=== PATIENT | male | born 1965 | race Caucasian/White ===

== ENCOUNTER 2016-05-29 14:25 | Emergency (ER) | payer MEDICARE, OTHER | END 2016-05-29 15:47 | disposition home or self-care (01) | LOC: FER 14:25 | DX: S61.212A Laceration without foreign body of right middle finger without damage to nail, initial encounter (principal); S61.214A Laceration without foreign body of right ring finger without damage to nail, initial encounter; I10 Essential (primary) hypertension; F17.210 Nicotine dependence, cigarettes, uncomplicated; Z88.5 Allergy status to narcotic agent; Z89.022 Acquired absence of left finger(s); W45.8XXA Other foreign body or object entering through skin, initial encounter; Y92.009 Unspecified place in unspecified non-institutional (private) residence as the place of occurrence of the external cause ==

== ENCOUNTER → 2020-05-31 | Day surgery (SDC) | payer MEDICARE ==
[~2020-05-31] MED LIST: AUGMENTIN 875-1 EACH PO; CLONIDINE HCL0.1 MG PO; COREG 6.25MG6.25 MG PO; K-DUR20 MEQ PO; LASIX20 MG PO; LISINOPRIL-HCT1 EAC2 PO; NORVASC5 MG PO; TRAZODONE 150M150 MG PO
[2020-05-31 10:35] LABS: HCT 54.2 % (42.0-52.0); HGB 17.9 g/dl (13.2-18.0); MCH 29.4 pg (25.0-31.0); MCV 89.1 fL (78.0-100.0); MPV 10.1 fL (6.0-9.5); RBC 6.08 M/uL (4.70-6.00); RDW 15.3 % (11.5-14.0)
[2020-05-31 10:56] LABS: ALBUMIN 3.3 g/dL (3.4-5.0); BILIRUBIN - TOTAL 0.7 mg/dL (0.2-1.0); BUN/CREAT RATIO (CALC) 15.1 RATIO; CREATININE 0.73 mg/dL (0.67-1.17); GLOBULIN (CALCULATION) 3.8 g/dL; POTASSIUM 3.5 mmol/L (3.5-5.1); TOTAL PROTEIN 7.1 g/dL (6.4-8.2)
== END | disposition home or self-care (01) ==
LOC: FAS 09:11
PROVIDERS: Surgery
DX: K12.2 Cellulitis and abscess of mouth (principal); K21.9 Gastro-esophageal reflux disease without esophagitis; I25.10 Atherosclerotic heart disease of native coronary artery without angina pectoris; I42.2 Other hypertrophic cardiomyopathy; I35.1 Nonrheumatic aortic (valve) insufficiency; I10 Essential (primary) hypertension; M19.90 Unspecified osteoarthritis, unspecified site; E78.5 Hyperlipidemia, unspecified; F17.210 Nicotine dependence, cigarettes, uncomplicated; Z20.822 Contact with and (suspected) exposure to COVID-19; Z98.890 Other specified postprocedural states
CPT/HCPCS: 36415; 80053; 93005; J2250; J2704; J7120

== ENCOUNTER 2021-06-11 09:59 | Inpatient (IN) | payer MEDICARE, OTHER ==
[~2021-06-11] VITALS: Ht 172.7 cm; Wt 90.8 kg
[2021-06-11 12:15] LABS: BASOPHIL 0.6 % (0-2); EOSINOPHIL 0.8 % (0-5); HCT 51.7 % (42.0-52.0); HGB 16.6 g/dl (13.2-18.0); LYMPHOCYTE 12.4 % (15-48); MCH 28.5 pg (25.0-31.0); MCHC 32.1 g/dL (32.0-36.0); MCV 88.8 fL (78.0-100.0); MONOCYTE 10.6 % (0-12); MPV 9.8 fL (6.0-9.5); NEUTROPHIL 75.2 % (41-80); NRBC 0; PLT 186 K/uL (150-400); RBC 5.82 M/uL (4.70-6.00); RDW 14.7 % (11.5-14.0); WBC 9.3 K/uL (4.0-10.5)
[2021-06-11 12:21] LABS: INR 1.24 (0.9-1.2); PROTHROMBIN TIME 14.9 SECONDS (11.8-13.4)
[2021-06-11 12:22] LABS: PTT 31.5 SECONDS (24.4-34.7)
[2021-06-11 12:23] LABS: D-DIMER 0.95 ug/mLFEU (0.00-0.41)
[2021-06-11 12:32] LABS: BILIRUBIN 1+ mg/dL (NEGATIVE); BLOOD 3+ Ery/uL (NEGATIVE); COLOR RED (YELLOW); GLUCOSE (U) NORMAL (NORMAL); LEUKOCYTES NEGATIVE Leu/uL (NEGATIVE); NITRITE NEGATIVE (NEGATIVE); PROTEIN 3+ mg/dL (NEGATIVE)
[2021-06-11 12:36] LABS: CLARITY HAZY (CLEAR)
[2021-06-11 12:38] LABS: URINARY RBC TNTC
[2021-06-11 12:39] LABS: CKMB 0.7 ng/mL (0.0-3.6)
[2021-06-11 12:39] LABS: SQUAMOUS EPITHELIAL CELLS RARE
[2021-06-11 14:16] LABS: ALBUMIN 1.4 g/dL (3.4-5.0); BILIRUBIN - TOTAL 0.5 mg/dL (0.2-1.0); BUN/CREAT RATIO (CALC) 13.8 RATIO; CREATININE 1.16 mg/dL (0.67-1.17); GLOBULIN (CALCULATION) 4.7 g/dL; POTASSIUM 3.7 mmol/L (3.5-5.1); TOTAL PROTEIN 6.1 g/dL (6.4-8.2)
[2021-06-11] MEDS ORDERED: OXYCONTIN 40MG40 MG PO (18:17)
[2021-06-11] MEDS ORDERED: ELIQUIS5 MG PO (18:17)
[2021-06-11] MEDS ORDERED: LUNESTA3 MG PO (18:18)
[2021-06-11] MEDS ORDERED: LASIX20 MG PO ×2 (20:51→22:40)
[2021-06-11 22:12] LABS: CREATININE 1.07 mg/dL (0.67-1.17); MAGNESIUM 1.9 mg/dL (1.8-2.4); PHOSPHORUS 4.1 mg/dL (2.6-4.7); POTASSIUM 3.6 mmol/L (3.5-5.1)
[2021-06-11] MEDS ORDERED: POTASSIUM20 MEQ/11 PO (22:39)
[2021-06-12 06:26] LABS: BASOPHIL 0.4 % (0-2); HCT 47.9 % (42.0-52.0); HGB 15.3 g/dl (13.2-18.0); LYMPHOCYTE 19.2 % (15-48); MCH 28.6 pg (25.0-31.0); MCHC 31.9 g/dL (32.0-36.0); MCV 89.5 fL (78.0-100.0); MONOCYTE 12.9 % (0-12); MPV 10.2 fL (6.0-9.5); NEUTROPHIL 65.2 % (41-80); NRBC 0; PLT 181 K/uL (150-400); RBC 5.35 M/uL (4.70-6.00); RDW 14.6 % (11.5-14.0); WBC 7.4 K/uL (4.0-10.5)
[2021-06-12 06:56] LABS: BUN/CREAT RATIO (CALC) 12.2 RATIO; CREATININE 1.15 mg/dL (0.67-1.17); POTASSIUM 2.8 mmol/L (3.5-5.1)
--- NOTE | 2021-06-12 12:24 | NUR ---
patient triggered from [facility]ST 7; also consult placed from for 70lb wt loss over 1 yr. During interiew, patient confused re: wt history, reporting stable wt with wt gain associated with edema. Pt reported wt gain, stable wt,as wekk as weight eight loss, without specifics with UBW being 170lbs; and again UBW being 200lbs. In review of prior weights in EMR, patient's UBW has been ~200lb range x 5 yrs. Again, patient unable to clarify weight history - family present and provided no additional information, allowing patient to comment. H&P notes 70lb wt loss in one year, with low weight of 167lb at one point. RD will continue to monitor p.o. intake; requested to be weighed today for more accurate wt after diuresis.
[2021-06-12 12:34] LABS: URINE CREATININE 75.41 mg/dL (29.00-226.00); URINE TOTAL PROTEIN-RANDOM 291.5 mg/dL (<11.9)
--- NOTE | 2021-06-12 15:27 | NUR ---
06/12/21 Please monitor for home 02 needs. Pt was independent in the home and community prior to admission.
[2021-06-13 07:39] LABS: BASOPHIL 0.4 % (0-2); EOSINOPHIL 2.4 % (0-5); HCT 48.2 % (42.0-52.0); HGB 15.4 g/dl (13.2-18.0); LYMPHOCYTE 16.2 % (15-48); MCH 28.9 pg (25.0-31.0); MCV 90.4 fL (78.0-100.0); MONOCYTE 13.4 % (0-12); NEUTROPHIL 67.2 % (41-80); NRBC 0; PLT 185 K/uL (150-400); RBC 5.33 M/uL (4.70-6.00); RDW 14.5 % (11.5-14.0); WBC 8.4 K/uL (4.0-10.5)
[2021-06-13 08:18] LABS: BUN/CREAT RATIO (CALC) 15.1 RATIO; CREATININE 1.19 mg/dL (0.67-1.17); POTASSIUM 3.3 mmol/L (3.5-5.1)
[2021-06-13 08:29] LABS: MAGNESIUM 2.5 mg/dL (1.8-2.4)
[2021-06-13 08:36] LABS: BAND 1 % (0-10); LYMPHOCYTE(M) 14 % (15-48); MONOCYTE(M) 9 % (0-12); NEUTROPHILS(M) 75 % (41-80); TOTAL CELL COUNT 100
[2021-06-13 08:37] LABS: EOSINOPHIL(M) 1 % (0-5); PLATELET ESTIMATE NORMAL; PLATELET MORPHOLOGY NORMAL
[2021-06-13 13:11] LABS: A/G RATIO 0.5 (0.7-1.7); ALBUMIN 1.6 g/dL (2.9-4.4); ALPHA-1-GLOBULIN 0.4 g/dL (0.0-0.4); ALPHA-2-GLOBULIN 0.9 g/dL (0.4-1.0); BETA GLOBULIN 0.9 g/dL (0.7-1.3); GAMMA GLOBULIN 0.7 g/dL (0.4-1.8); M-SPIKE Not Observed g/dL (Not Observed); PROTEIN, TOTAL, SERUM 4.6 g/dL (6.0-8.5)
[2021-06-14 05:29] LABS: BASOPHIL 0.2 % (0-2); EOSINOPHIL 0 % (0-5); HCT 49.8 % (42.0-52.0); HGB 15.8 g/dl (13.2-18.0); MCH 28.6 pg (25.0-31.0); MCHC 31.7 g/dL (32.0-36.0); MCV 90.2 fL (78.0-100.0); MONOCYTE 1.1 % (0-12); NEUTROPHIL 93.4 % (41-80); NRBC 0; PLT 202 K/uL (150-400); RBC 5.52 M/uL (4.70-6.00); RDW 14.3 % (11.5-14.0)
[2021-06-14 05:35] LABS: WBC 6.1 K/uL (4.0-10.5)
[2021-06-14 06:35] LABS: ALBUMIN 1.3 g/dL (3.4-5.0); BILIRUBIN - TOTAL 0.4 mg/dL (0.2-1.0); BUN/CREAT RATIO (CALC) 12.9 RATIO; CREATININE 1.39 mg/dL (0.67-1.17); GLOBULIN (CALCULATION) 4.6 g/dL; MAGNESIUM 2.3 mg/dL (1.8-2.4); PHOSPHORUS 3.5 mg/dL (2.6-4.7); POTASSIUM 3.8 mmol/L (3.5-5.1); TOTAL PROTEIN 5.9 g/dL (6.4-8.2)
--- NOTE | 2021-06-14 09:45 | NUR ---
06/14/21 A referral was made to [facility] for 02 at 2 L per patient choice.
[2021-06-14] MEDS ORDERED: HCTZ25 MG PO (14:42)
[2021-06-14] MEDS ORDERED: LISINOPRIL40 MG PO ×2 (14:42→15:55)
[2021-06-14] MEDS ORDERED: MUCINEX 600MG600 MG PO (15:13)
[2021-06-14] MEDS ORDERED: ZITHROMAX TRI-500 MG PO (15:23)
[2021-06-14 16:11] LABS: ANTIMYELOPEROXIDASE (MPO) ABS <9.0 U/mL (0.0-9.0); ANTIPROTEINASE 3 (PR-3) ABS <3.5 U/mL (0.0-3.5); ATYPICAL PANCA <1:20 titer (Neg:<1:20); CYTOPLASMIC (C-ANCA) <1:20 titer (Neg:<1:20); PERINUCLEAR (P-ANCA) <1:20 titer (Neg:<1:20)
[2021-06-15 15:11] LABS: M-SPIKE, % Not Observed % (Not Observed); PROTEIN,TOTAL,URINE 256.9 mg/dL (Not Estab.)
[2021-06-15 16:12] LABS: ANTIMYELOPEROXIDASE (MPO) ABS <9.0 U/mL (0.0-9.0); ANTIPROTEINASE 3 (PR-3) ABS <3.5 U/mL (0.0-3.5); ATYPICAL PANCA <1:20 titer (Neg:<1:20); CYTOPLASMIC (C-ANCA) <1:20 titer (Neg:<1:20); PERINUCLEAR (P-ANCA) <1:20 titer (Neg:<1:20)
== END 2021-06-14 15:50 | disposition home or self-care (01) | DRG 698 ==
LOC: FER 09:59 → FMS 17:45
PROVIDERS: Emergency Medicine; Internal Medicine; Internal Medicine Nephrology; Nurse Practitioner Acute Care; ADMIT Internal Medicine
DX: N04.9 Nephrotic syndrome with unspecified morphologic changes (principal); J96.01 Acute respiratory failure with hypoxia; J96.02 Acute respiratory failure with hypercapnia; J18.9 Pneumonia, unspecified organism; E43 Unspecified severe protein-calorie malnutrition; J44.1 Chronic obstructive pulmonary disease with (acute) exacerbation; J44.0 Chronic obstructive pulmonary disease with (acute) lower respiratory infection; Z20.822 Contact with and (suspected) exposure to COVID-19; I12.9 Hypertensive chronic kidney disease with stage 1 through stage 4 chronic kidney disease, or unspecified chronic kidney disease; N18.2 Chronic kidney disease, stage 2 (mild); R31.0 Gross hematuria; R73.9 Hyperglycemia, unspecified; R79.1 Abnormal coagulation profile; R60.1 Generalized edema; D45 Polycythemia vera; M19.90 Unspecified osteoarthritis, unspecified site; Z86.73 Personal history of transient ischemic attack (TIA), and cerebral infarction without residual deficits; Z87.442 Personal history of urinary calculi; Z98.890 Other specified postprocedural states; Z87.891 Personal history of nicotine dependence; Z79.01 Long term (current) use of anticoagulants; Z79.899 Other long term (current) drug therapy; Z88.5 Allergy status to narcotic agent; Z68.30 Body mass index [BMI] 30.0-30.9, adult; Z99.81 Dependence on supplemental oxygen
CPT/HCPCS: 36415; 71046; 76770; 80048; 80053; 81001; 82553; 82570; 82728; 83036; 83520; 83735; 83880; 84100; 84145; 84155; 84156; 84165; 84166; 84300; 84484; 84550; 85025; 85379; 85610; 85730; 86038; 86140; 86160; 86162; 86256; 87040; 87088; 93970; 94640; 94667; 94668; 94760; 94762; J0456; J0696; J1170; J1200; J1940; J2930; J7050; Q9967; U0002